=== PATIENT | male | born 1985 ===

== ENCOUNTER 2022-02-20 17:49 | Emergency (ER) | payer SELFPAY ==
[2022-02-20] MEDS ORDERED: Ketorolac 30 MG/ML SDV IM ONE (18:12)
== END 2022-02-20 18:45 | disposition home or self-care (01) ==
LOC: FB.ED 17:49
DX: T75.4XXA Electrocution, initial encounter (principal); W86.8XXA Exposure to other electric current, initial encounter
CPT/HCPCS: 96372; 99283; J1885